=== PATIENT | male | born 1965 | race Caucasian/White ===

== ENCOUNTER 2022-04-10 17:08 | Emergency (ER) | payer MEDICARE, OTHER ==
[2022-04-10 17:40] VITALS: TEMP 97.6
[2022-04-10] MEDS ORDERED: DIPH,PERTUS(ACELL)TETVAC-LF 0.5 ML VIAL IM ONE (17:43)
[2022-04-10] MEDS ORDERED: ACETAMINOPHEN TAB 500 MG TAB PO STA (17:43)
[2022-04-10] MEDS ORDERED: LIDOCAINE 1% INJ 10MG/ML (20 ML MDV) SQ ONE (17:43)
[2022-04-10] MEDS ORDERED: TOPICAL SKIN ADHESIVE 1 EACH AMP TOPICAL ONE (17:48)
[2022-04-10] MEDS ORDERED: IBUPROFEN 600 MG TAB PO STA (17:49)
--- NOTE | 2022-04-10 18:00 | ED ---
Wound/Laceration HPI - General Chief Complaint: Wound/Laceration Stated Complaint: head injury Time Seen by Provider: 04/10/22 17:42 Source: patient, RN notes reviewed, old records reviewed Mode of arrival: ambulatory Limitations: no limitations - History of Present Illness Initial Comments: Patient was cutting wood when a log came up and kicked him in the forehead. Did not lose consciousness. Laceration approximately 1 cm vertical to forehead and superficial. No active bleeding. -: hour(s) (1) Location: face (mid forehead) Place: outdoors Patient Tetanus UTD: No Context: accidental Associated Symptoms: none Treatments Prior to Arrival: bandage - Related Data Allergies Allergy/AdvReac Type Severity Reaction Status Date / Time No Known Allergies Allergy Verified 04/10/22 17:40 Review of Systems ROS Statement: Those systems with pertinent positive or pertinent negative responses have been documented in the HPI. ROS Other: All systems not noted in ROS Statement are negative. Past Medical History Past Medical History: Asthma, COPD, Diabetes Mellitus, Hypertension History of Any Multi-Drug Resistant Organisms: None Reported Past Surgical History: Hernia Repair Additional Past Surgical History / Comment(s): cervical fusion Past Psychological History: No Psychological Hx Reported Smoking Status: Never smoker Past Alcohol Use History: None Reported Past Drug Use History: None Reported General Exam Limitations: no limitations General appearance: alert, in no apparent distress Head exam: Present: normocephalic Expanded Head exam: Present: laceration (1 cm vertical laceration mid forehead superficial, no hematoma or surrounding erythema). Absent: general tenderness, tenderness of temporal artery Eye exam: Present: normal appearance, PERRL. Absent: scleral icterus, conjunctival injection, periorbital swelling, periorbital tenderness ENT exam: Present: normal exam, mucous membranes moist Neck exam: Present: normal inspection, full ROM. Absent: tenderness, meningismus, lymphadenopathy Respiratory exam: Absent: respiratory distress, accessory muscle use Cardiovascular Exam: Present: tachycardia Neurological exam: Present: alert, oriented X3, CN II-XII intact, normal gait Psychiatric exam: Present: normal affect, normal mood. Absent: agitated Skin exam: Present: warm, dry, normal color. Absent: cyanosis, diaphoretic, erythema, pallor Course Vital Signs 04/10/22 17:37 Temperature 97.6 F Pulse Rate 110 H Respiratory 20 Rate Blood Pressure 138/91 O2 Sat by Pulse 98 Oximetry Medical Decision Making - Medical Decision Making Patient was cutting wood and a piece of the log came up and hit him in the forehead. He did sustain an approximately 1 cm superficial vertical laceration to the center of his forehead. States did not lose consciousness. He has no focal neurological deficits. Denies headache or vision changes. Patient has no other complaints or injuries. Patient is ambulatory with a steady gait. Wound was irrigated with saline. Exofin glue and steri strips applied, which approximated the wound well. Tetanus was updated at this visit. He was instructed to keep the wound clean and dry, no ointments or lotions to the site. He is to follow-up with his primary care doctor next week. Return to the emergency room with any new or concerning symptoms. He is agreeable to this plan of care. Case was discussed with Dr. May. Disposition Clinical Impression: Laceration Disposition: HOME SELF-CARE Condition: Good Instructions (If sedation given, give patient instructions): Laceration (ED), Skin Adhesive Care (ED) Additional Instructions: Keep wound clean and dry. Do not put any ointments or lotions on the glue or Steri-Strips. The Steri-Strips and glue will flake off on their own in approximately 10 days. Return to the emergency room with any new or concerning symptoms including fevers, redness, swelling or drainage. Is patient prescribed a controlled substance at d/c from ED?: No Referrals: Leno Harper MD [Primary Care Provider] - 1-2 days Time of Disposition: 17:58
[2022-04-10 18:26] VITALS: BP 136/89; PULSE 100; RESP 18
== END 2022-04-10 18:07 | disposition home or self-care (01) ==
LOC: EC 17:08
DX: S01.81XA Laceration without foreign body of other part of head, initial encounter (principal); J44.9 Chronic obstructive pulmonary disease, unspecified; I10 Essential (primary) hypertension; E11.9 Type 2 diabetes mellitus without complications; Z23 Encounter for immunization; W22.8XXA Striking against or struck by other objects, initial encounter; Y93.89 Activity, other specified; Y92.89 Other specified places as the place of occurrence of the external cause
CPT/HCPCS: 90471; 90715; 99283